=== PATIENT | female | born 2000 | race Caucasian/White ===

== ENCOUNTER 2019-12-26 09:04 | Emergency (ER) | payer SELFPAY ==
[~2019-12-26] VITALS: Ht 162.6 cm; Wt 81.8 kg
[2019-12-26 09:51] VITALS: BP 136/78
== END 2019-12-26 11:34 | disposition home or self-care (01) ==
LOC: EMS 09:07
DX: R50.9 Fever, unspecified (principal); M79.18 Myalgia, other site